=== PATIENT | male | born 1975 | race Two or more races ===

== ENCOUNTER 2020-12-08 18:00 | Emergency (ER) | payer OTHER ==
[~2020-12-08] VITALS: Ht 170.2 cm; Wt 86.2 kg
[2020-12-08 21:00] VITALS: BP 133/94
[2020-12-08] MEDS ORDERED: PIPERACILLIN/TAZOBACTAM 3.375 GM in IV NORMAL SALINE 50ML 50 ML IV ONE (21:45)
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
[2020-12-08] MEDS ORDERED: CEPH500T PO (22:39)
[2020-12-08] MEDS ORDERED: HYDR-2761 PO (22:39)
== END 2020-12-08 23:03 | disposition home or self-care (01) ==
LOC: ER 18:00
DX: S62.631B Displaced fracture of distal phalanx of left index finger, initial encounter for open fracture (principal); W23.0XXA Caught, crushed, jammed, or pinched between moving objects, initial encounter; Y93.89 Activity, other specified; Y92.89 Other specified places as the place of occurrence of the external cause; Y99.8 Other external cause status
CPT/HCPCS: 29130; 73140; 96365; 99284; J2543